=== PATIENT | female | born 1980 | race Caucasian/White ===

== ENCOUNTER 2018-04-08 15:10 | Emergency (ER) | payer OTHER, SELFPAY ==
[2018-04-08] MEDS ORDERED: diphenhydrAMINE 50 MG/ML VIAL ONE (16:37)
[2018-04-08] MEDS ORDERED: Ketorolac Tromethamine 30 MG/ML VIAL ONE (16:37)
[2018-04-08] MEDS ORDERED: Prochlorperazine 10 MG/2 ML VIAL ONE (16:37)
== END 2018-04-08 18:08 | disposition home or self-care (01) ==
LOC: SCSER 15:10
DX: G40.909 Epilepsy, unspecified, not intractable, without status epilepticus (principal); G43.909 Migraine, unspecified, not intractable, without status migrainosus; Z79.899 Other long term (current) drug therapy
CPT/HCPCS: 96361; 96374; 96375; J0780; J1200; J1885

== ENCOUNTER 2021-12-07 11:34 | Emergency (ER) | payer OTHER, BC | END 2021-12-07 15:06 | disposition home or self-care (01) | LOC: ERS 11:34 | DX: T23.171A Burn of first degree of right wrist, initial encounter (principal); S00.83XA Contusion of other part of head, initial encounter; S50.12XA Contusion of left forearm, initial encounter; L03.113 Cellulitis of right upper limb; V43.52XA Car driver injured in collision with other type car in traffic accident, initial encounter; W22.11XA Striking against or struck by driver side automobile airbag, initial encounter | CPT/HCPCS: 70450; 72125 ==